=== PATIENT | male | born 1990 | race African-American/Black ===

== ENCOUNTER 2017-11-23 01:50 | Emergency (ER) | payer SELFPAY ==
[~2017-11-23 01:50] MED LIST: AMOX500T PO
[2017-11-23 01:53] VITALS: BP 158/76; PULSE 63; RESP 15; TEMP 97.6; O2SAT 97
[2017-11-23] MEDS ORDERED: DICL75TA PO (02:20)
[2017-11-23] MEDS ORDERED: CYCL10TA PO (02:20)
[2017-11-23] MEDS ORDERED: CYCLOBENZAPRINE HCL 10 MG TAB PO ONE (02:30)
[2017-11-23] MEDS ORDERED: NAPROXEN 500 MG TAB PO ONE (02:30)
--- NOTE | 2017-11-23 02:30 | PD ---
HPI Chief Complaint: Back/ Neck Pain or Injury Time Seen by Provider: 02:13 Travel History International Travel<30 days: No Contact w/Intl Traveler<30days: No Traveled to known affect area: No History of Present Illness HPI 27-year-old black male presents emergency department with complains of right sided neck pain today. He states that he had pain in his left shoulder and left neck over the last 1-2 weeks after starting back doing push-ups. He states that the pain on the left side has nearly resolved. The pain started on the right side today. He does not recall any exacerbating activity other than the push-ups. He denies any direct trauma. No numbness or tingling. Symptoms are moderate. Worse with movement. No alleviating factors. PFSH Past Medical History Medical History: Denies Significant Hx Diminished Hearing: No Immunizations Current: Yes Tetanus Vaccination: > 5 Years Influenza Vaccination: No Past Surgical History Surgical History: No Previous Surgery Social History Alcohol Use: Yes (OCCASIONAL) Tobacco Use: No Substance Use: No Allergies-Medications (Allergen,Severity, Reaction): Coded Allergies: No Known Allergies (Unverified Adverse Reaction, Unknown, 11/23/17) Reported Meds & Prescriptions Reported Meds & Active Scripts Active Flexeril (Cyclobenzaprine HCl) 10 Mg Tab 10 Mg PO TID Diclofenac Sodium DR (Diclofenac Sodium) 75 Mg Tabdr 75 Mg PO BID Review of Systems General / Constitutional: No: Fever Eyes: No: Visual changes HENT: Positive: Neck Stiffness, Neck Pain, No: Headaches Cardiovascular: No: Chest Pain or Discomfort Respiratory: No: Shortness of Breath Gastrointestinal: No: Abdominal Pain Genitourinary: No: Dysuria Musculoskeletal: No: Pain Skin: No Rash Neurologic: No: Weakness Psychiatric: No: Depression Endocrine: No: Polydipsia Hematologic/Lymphatic: No: Easy Bruising Physical Exam Narrative GENERAL: Well-developed, well-nourished in no acute distress. Nontoxic appearing. HEAD: Normocephalic, atraumatic. EYES: Pupils equal round and reactive. Extraocular motions intact. No scleral icterus. No injection or drainage. ENT: TMs clear without erythema. The external auditory canals clear. Nose: clear . Posterior pharynx is pink and moist. No tonsillar edema or exudate. Uvula midline. Airway patent. NECK: Trachea midline. No central bony tenderness. Right paracervical tenderness and mild spasm. Decreased range of motion due to pain. CARDIOVASCULAR: Regular rate and rhythm without murmurs, gallops, or rubs. RESPIRATORY: Clear to auscultation. Breath sounds equal bilaterally. No wheezes , rales, or rhonchi. GASTROINTESTINAL: Abdomen soft, non-tender, nondistended. No hepato-splenomegaly , or palpable masses. No guarding. EXTREMITIES: No clubbing, cyanosis, or edema. No joint tenderness, effusion, or edema noted. BACK: Nontender without deformity or crepitance. No flank tenderness. Data Data Last Documented VS Vital Signs Date Time Temp Pulse Resp B/P (MAP) Pulse Ox O2 Delivery O2 Flow Rate FiO2 11/23/17 01:53 97.6 63 15 158/76 (103) 97 Orders Orders Naproxen (Naprosyn) (11/23/17 02:30) Cyclobenzaprine (Flexeril) (11/23/17 02:30) Ed Discharge Order (11/23/17 02:18) MDM Medical Decision Making Medical Screen Exam Complete: Yes Emergency Medical Condition: Yes Medical Record Reviewed: Yes Differential Diagnosis MDM: High Differential diagnoses: sprain, strain, spasm, HNP, nerve or vascular injury Narrative Course Patient was given Naprosyn 500 mg and Flexeril 10 mg p.o. This is cervical spasm Diagnosis Primary Impression: Cervical paraspinal muscle spasm Patient Instructions: General Instructions Departure Forms: Tests/Procedures, Work Release Special Instructions: No work 3 days. Additional Instructions: Rest. Ice for the next 3 days followed by heat . Flexeril and Voltaren. Follow-up with a primary care doctor in one week. Return to the ER for emergencies. Med/Other Pt SpecificInfo: Prescription(s) given Scripts Cyclobenzaprine (Flexeril) 10 Mg Tab 10 MG PO TID for Muscle Spasm, #30 TAB 0 Refills Prov: Adria Newton MD 11/23/[address] (Diclofenac Sodium DR) 75 Mg Tabdr 75 MG PO BID, #20 TAB 0 Refills Prov: Adria Newton MD 11/23/17 Disposition: 01 DISCHARGE HOME Condition: Stable Jayden Acevedo November 23, 2017 02:30
== END 2017-11-23 02:44 | disposition home or self-care (01) ==
LOC: NEPD 01:50
DX: M62.830 Muscle spasm of back (principal)
CPT/HCPCS: 99283

== ENCOUNTER 2018-04-24 19:18 | Inpatient (IN) ==
[2018-04-24] MEDS ORDERED: Morphine Sulfate Inj 8 MG/ML Vial ONE ×3 (19:22→20:13)
[2018-04-24] MEDS ORDERED: Diphtheria/Tetanus/Pertussis Vaccine Inj 0.5 ML Syringe IM ONE (19:22)
[2018-04-24] MEDS ORDERED: ceFAZolin 2 GM Premix Inj 2 GM/50 ML PIGGYBACK IV.SIG ONE (19:22)
[2018-04-24 19:39] LABS: Baso % (Auto) 0.4 % (0.0-2.0); Eos # (Auto) 0.2 th/mm3 (0.0-0.4); Eos % (Auto) 2.1 % (0.0-4.0); Hematocrit 45.1 % (39.0-51.0); Hemoglobin 14.9 gm/dL (13.0-17.0); Lymph # (Auto) 4.9 th/mm3 (1.0-4.8); Lymph % (Auto) 50.3 % (9.0-44.0); Mean Corpuscular HGB Conc 33.1 % (32.0-36.0); Mean Corpuscular Hemoglobin 31.4 pg (27.0-34.0); Mean Corpuscular Volume 94.9 fL (80.0-100.0); Mean Platelet Volume 9.7 fL (7.0-11.0); Mono # (Auto) 0.7 th/mm3 (0.0-0.9); Mono % (Auto) 7.6 % (0.0-8.0); Neut # (Auto) 3.8 th/mm3 (1.8-7.7); Neut % (Auto) 39.6 % (16.0-70.0); Platelet Count 187 th/mm3 (150-450); Red Blood Count 4.75 mil/mm3 (4.50-5.90); Red Cell Distribution Width 13.5 % (11.6-17.2); White Blood Count 9.7 th/mm3 (4.0-11.0)
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
[2018-04-24] MEDS ORDERED: Morphine Inj 30 MG/30 ML PCA.VIAL PCA PRN (19:58)
[2018-04-24] MEDS ORDERED: Naloxone Inj 0.4 MG/ML Vial IV.PUSH PRN (19:58)
[2018-04-24 20:00] LABS: Activated Partial Thrombo Time 20.2 sec (24.3-30.1); Prothrombin Time 9.8 sec (9.8-11.6)
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
[2018-04-24] MEDS ORDERED: Morphine Inj 4 MG/ML Vial IV.PUSH SCH (22:45)
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
[2018-04-24] MEDS ORDERED: Phenylephrine/NS 1000 MCG/10ML Syringe IV.PUSH ONE (23:41)
[2018-04-24] MEDS ORDERED: Glycopyrrolate Inj 1 MG/5 ML Syringe IV.PUSH ONE (23:41)
[2018-04-24] MEDS ORDERED: Succinylcholine Inj 100 MG/5 ML Syringe IV.PUSH ONE (23:41)
[2018-04-24] MEDS ORDERED: Lidocaine PF 1% Inj 5 ML Syringe OTHER ONE (23:41)
[2018-04-24] MEDS ORDERED: Neostigmine Inj 5 MG/5 ML Syringe IV.PUSH ONE (23:41)
--- NOTE | 2018-04-25 01:27 | P.BOP ---
- Preoperative Diagnosis (1) Open fracture of unspecified bone(s) of foot (except toes) (2) Traumatic amputation of toe(s) (complete) (partial), complicated - Postoperative Diagnosis (1) Open fracture of unspecified bone(s) of foot (except toes) (2) Traumatic amputation of toe(s) (complete) (partial), complicated Date of procedure: 04/25/18 Procedure: 1. irrigation and debridement of open fractures left foot 2. transmetatarsal amputation left foot Extensive soft tissue damage left forefoot with absence of digits 4 and 5, absence of bone to distal 2nd, 3rd, and 4th metatarsals, visible comminuted fracture to 1st metatarsal. Debris within wound bed diffusely. Cut metatarsals 1-5 at proximal 1/3 and cut to clean margins of skin to surrounding wound and excised damaged tissue and bone to distal forefoot at level of transmetatarsal amputation. Irrigation with 12L normal saline plus gentamicin. Closure with 2-0 nylon sutures. Dressing with xeroform, 4x4, abd x 3, cast padding, short posterior splint. No tourniquet utilized. 80mg Gentamicin IV 2g Ancef IV Nonweightbearing left lower extremity Continue IV antibiotics as ordered x 24 hours No further surgery planned at this time. Follow up in clinic in 1 week for dressing change. Anesthesia: GETA, local (24mL 0.5% marcaine plain) Surgeon: Khloe Verdin DPM Training Coordinator: staff Estimated blood loss (mL): 30 Pathology: other (culture left foot) Condition: stable Disposition: PACU
[2018-04-25] MEDS ORDERED: Bupivacaine 0.5% Inj 50 ML MDV Vial ONE (01:30)
[2018-04-25] MEDS ORDERED: fentaNYL Citrate Inj 100 MCG/2 ML Ampul ONE (01:52)
[2018-04-25] MEDS ORDERED: Gentamicin/NS 80 mg Premix 100 ML IV.SIG SCH (02:00)
[2018-04-25] MEDS ORDERED: ceFAZolin 2 GM Premix Inj 2 GM/50 ML PIGGYBACK IV.SIG SCH (02:00)
[2018-04-25] MEDS: Sod Chloride 0.9% Inj 1,000 ML IV.CONT SCH ×4 (02:30→17:14)
--- NOTE | 2018-04-25 03:32 | XR ---
EXAM DATE: 04/25/2018 12:00 AM EDT AGE/SEX: 89 years / Male INDICATIONS: Post op left foot. CLINICAL DATA: This is the patient's subsequent encounter. Patient reports that signs and symptoms h ave been present for 1 day and indicates a pain score of Nonresponsive. MEDICAL/SURGICAL HISTORY: Non-responsive. Non-responsive. COMPARISON: [facility] [place]OT [place] 1V, 04/24/2018. . FINDINGS: Views of left foot are obtained. There has been amputation along the proximal metatarsals. Foot withi n a splint. CONCLUSION: Postoperative changes left foot Electronically signed by: Nicko Pleitez MD 04/25/2018 3:31 AM EDT
[2018-04-25] MEDS ORDERED: Chlorhexidine Gluconate 2% 1 Pack (2 Cloths) TOPICAL SCH (04:00)
[2018-04-25] MEDS ORDERED: Chlorhexidine Gluconate 2% 1 Pack (2 Cloths) TOPICAL PRN (04:00)
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
[2018-04-25 06:03] LABS: Baso % (Auto) 0.1 % (0.0-2.0); Hemoglobin 12.9 gm/dL (13.0-17.0); Lymph # (Auto) 0.4 th/mm3 (1.0-4.8); Mean Corpuscular HGB Conc 33.9 % (32.0-36.0); Mean Corpuscular Hemoglobin 31.5 pg (27.0-34.0); Mean Corpuscular Volume 92.8 fL (80.0-100.0); Mean Platelet Volume 9.7 fL (7.0-11.0); Mono # (Auto) 0.3 th/mm3 (0.0-0.9); Mono % (Auto) 2.6 % (0.0-8.0); Neut # (Auto) 11.8 th/mm3 (1.8-7.7); Neut % (Auto) 94.3 % (16.0-70.0); Platelet Count 149 th/mm3 (150-450); Red Cell Distribution Width 13.7 % (11.6-17.2); White Blood Count 12.6 th/mm3 (4.0-11.0)
[2018-04-25 06:32] LABS: Calcium 8.1 mg/dL (8.5-10.1); Carbon Dioxide 27.8 meq/L (21.0-32.0); Potassium 4.2 meq/L (3.5-5.1)
[2018-04-25] MEDS: Gentamicin/NS 80 mg Premix 100 ML IV.SIG SCH ×2 (08:00→17:09)
[2018-04-25 08:01] LABS: CKMB Percent 0.4 % (0.0-4.0); Creatine Kinase MB 3.2 ng/mL (0.5-3.6)
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
[2018-04-25] MEDS ORDERED: Morphine Sulfate Inj 2 MG/ML Vial IV.PUSH PRN (09:32)
[2018-04-25] MEDS: Docusate Sodium 100 MG Capsule PO SCH ×3 (09:48→20:58)
[2018-04-25] MEDS: ceFAZolin 2 GM Premix Inj 2 GM/50 ML PIGGYBACK IV.SIG SCH ×3 (10:51→23:32)
[2018-04-25] MEDS: Enoxaparin Inj 40 MG/0.4 ML Syringe SQ SCH (11:03)
[2018-04-25] MEDS: Gabapentin 300 MG Capsule PO SCH ×2 (12:25→18:19)
--- NOTE | 2018-04-25 14:59 | P.PNPOD ---
Subjective Interval history: s/p left transmetatarsal amputation and irrigation/debridement left foot open fractures Review of Systems All other systems reviewed negative except as stated in HPI Physical Exam Vital signs: Vital Signs 04/24/18 19:18 04/24/18 19:24 04/24/18 21:00 Temperature Pulse Rate Respiratory Rate Blood Pressure Pulse Oximetry 99 99 100 04/25/18 01:45 04/25/18 02:00 04/25/18 02:15 Temperature 98.3 F Pulse Rate 84 79 79 Respiratory Rate 12 12 14 Blood Pressure 121/59 L 119/56 L 122/58 L Pulse Oximetry 100 100 100 04/25/18 02:30 04/25/18 02:45 04/25/18 02:57 Temperature 98.6 F Pulse Rate 81 75 79 Respiratory Rate 14 14 14 Blood Pressure 114/60 116/61 111/59 L Pulse Oximetry 96 99 99 04/25/18 03:47 04/25/18 04:27 04/25/18 08:00 Temperature 97.5 F L 97.9 F Pulse Rate 70 88 Respiratory Rate 16 16 15 Blood Pressure 116/58 L 138/66 Pulse Oximetry 100 100 04/25/18 12:00 04/25/18 13:34 Temperature 98.6 F Pulse Rate 88 Respiratory Rate 16 Blood Pressure 134/77 Pulse Oximetry 97 95 Intake & Output 04/24/18 04/25/18 04/25/18 18:59 06:59 18:59 Intake Total 1250 / 1250 Balance 1250 / 1250 Weight 95.98 kg Intake: IV 1250 / 1250 NS Inj 1,000 ML @ 100 mls/hr IV 1000 / 1000 .CONT .Q10H [facility] Rx#:[id number] Ofirmev Inj 1,000 mg In 100 ml 100 / 100 @ 400 mls/hr IV.SIG Q6H [facility] Rx# :[id number] Gentamicin/NS 80 mg Premix 100 100 / 100 ML @ 200 mls/hr IV.SIG Q8H [facility] Rx#:[id number] Ancef 2 GM Premix Inj 2 gm In 50 / 50 50 ml @ 100 mls/hr IV.SIG Q8H [facility] Rx#:[id number] Other: Weight On Admission 100.516 kg Narrative: left foot splint and dressing clean, dry, intact Medications and Allergies Active Medications: Active Medications Al Hydroxide/Mg Hydroxide (Milk Of Rupal May) 30 ml PO BID [facility] Last Admin: 04/25/18 09:48 Dose: 30 ml Bacitracin (Baciguent Oint) 1 applicatio TOPICAL BID [facility] Last Admin: 04/25/18 11:09 Dose: Not Given Chlorhexidine Gluconate (Chlorhexidine 2% Cloth) 3 pack TOPICAL DAILY@0400 [facility] Stop: 04/30/18 03:59 Last Admin: 04/25/18 11:06 Dose: Not Given Chlorhexidine Gluconate (Chlorhexidine 2% Cloth) 3 pack TOPICAL DAILY@0400 PRN PRN Reason: Extra cloth needed Stop: 04/30/18 03:59 Docusate Sodium (Colace) 100 mg PO BID [facility] Last Admin: 04/25/18 11:08 Dose: Not Given Enalaprilat (Vasotec Inj) 1.25 mg IV.PUSH Q8H PRN PRN Reason: Blood pressure 180/95 Enoxaparin Sodium (Lovenox Inj) 40 mg SQ DAILY [facility] Last Admin: 04/25/18 11:03 Dose: 40 mg Gabapentin (Neurontin) 300 mg PO TID [facility] Last Admin: 04/25/18 12:25 Dose: 300 mg Sodium Chloride (Ns Inj) 1,000 mls @ 100 mls/hr IV.CONT .Q10H [facility] Last Admin: 04/25/18 11:08 Dose: Not Given Morphine Sulfate (Morphine Inj) 30 mg in 30 mls @ 0 mls/hr [employer] WORKER UNSCH PRN PRN 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: 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 Last Admin: 04/25/18 02:30 Dose: 0 mls/hr Cefazolin Sodium/Dextrose (Ancef 2 Gm Premix Inj) 2 gm in 50 mls @ 100 mls/hr IV.SIG Q8H [facility] Stop: 04/26/18 00:29 Last Infusion: 04/25/18 11:21 Dose: Infused Gentamicin Sulfate/Sodium Chloride (Gentamicin/Ns 80 Mg Premix) 100 mls @ 200 mls/hr IV.SIG Q8H [facility] Stop: 04/26/18 08:59 Last Infusion: 04/25/18 08:30 Dose: Infused Acetaminophen (Ofirmev Inj) 1,000 mg in 100 mls @ 400 mls/hr IV.SIG Q6H [facility] Stop: 04/26/18 04:14 Last Infusion: 04/25/18 11:19 Dose: Infused Miscellaneous Information ([facility]) 1 each OTHER UNSCH PRN PRN Reason: SEE LABEL COMMENTS Stop: 04/26/18 00:59 Morphine Sulfate (Morphine Inj) 2 mg IV.PUSH Q3H PRN PRN Reason: BREAKTHROUGH PAIN Naloxone HCl (Narcan Inj) 0.4 mg IV.PUSH PRN PRN PRN Reason: Resp rate < 10 Ondansetron HCl (Zofran Inj) 4 mg IV.PUSH Q6H PRN PRN Reason: NAUSEA OR VOMITING Oxycodone HCl (Roxicodone) 10 mg PO Q4H PRN PRN Reason: Pain 6-10 Last Admin: 04/25/18 09:46 Dose: 10 mg Oxycodone HCl (Roxicodone) 5 mg PO Q4H PRN PRN Reason: Acute Pain Pantoprazole Sodium (Protonix Inj) 40 mg IV.PUSH Q24H [place] Sodium Chloride (Ns Flush) 2 ml IV.FLUSH UNSCH PRN PRN Reason: FLUSH AFTER USING IV ACCESS Allergies Allergy/AdvReac Type Severity Reaction Status Date / Time No Known Allergies Allergy Verified 04/24/18 20:57 Results - Labs CBC & Chem 7: 04/25/18 05:20 04/25/18 05:20 Laboratory Results - last 24 hr 04/24/18 04/24/18 04/24/18 19:25 19:25 19:25 WBC 9.7 RBC 4.75 Hgb 14.9 POC Hgb (Calc) 15.0 Hct 45.1 POC Hct 44.0 MCV 94.9 MCH 31.4 MCHC 33.1 RDW 13.5 Plt Count 187 MPV 9.7 Neut % (Auto) 39.6 Lymph % (Auto) 50.3 H [place] % (Auto) 7.6 Eos % (Auto) 2.1 Baso % (Auto) 0.4 Neut # (Auto) 3.8 Lymph # (Auto) 4.9 H [place] # (Auto) 0.7 Eos # (Auto) 0.2 Baso # (Auto) 0.0 WBC Differential . Differential Comment Auto diff final PT 9.8 INR 1.0 APTT 20.2 L POC Sodium 145 H Sodium POC Potassium 2.9 L* Potassium POC Chloride 101 L Chloride Carbon Dioxide Anion Gap POC BUN 18 BUN Creatinine POC Creatinine 1.8 H Estimated GFR POC Glucose 98 Random Glucose Calcium Total Creatine Kinase CK-MB (CK-2) CK-MB (CK-2) % Nasal Screen MRSA (PCR) Blood Type Antibody Screen 04/24/18 04/25/18 04/25/18 19:25 03:27 05:20 WBC 12.6 H RBC 4.10 L Hgb 12.9 L D POC Hgb (Calc) Hct 38.0 L POC Hct MCV 92.8 MCH 31.5 MCHC 33.9 RDW 13.7 Plt Count 149 L MPV 9.7 Neut % (Auto) 94.3 H Lymph % (Auto) 3.0 L [place] % (Auto) 2.6 Eos % (Auto) 0.0 Baso % (Auto) 0.1 Neut # (Auto) 11.8 H Lymph # (Auto) 0.4 L [place] # (Auto) 0.3 Eos # (Auto) 0.0 Baso # (Auto) 0.0 WBC Differential . Differential Comment Auto diff final PT INR APTT POC Sodium Sodium POC Potassium Potassium POC Chloride Chloride Carbon Dioxide Anion Gap POC BUN BUN Creatinine POC Creatinine Estimated GFR POC Glucose Random Glucose Calcium Total Creatine Kinase CK-MB (CK-2) CK-MB (CK-2) % Nasal Screen MRSA (PCR) Not detected Blood Type A Positive Antibody Screen Negative 04/25/18 04/25/18 05:20 05:20 WBC RBC Hgb POC Hgb (Calc) Hct POC Hct MCV MCH MCHC RDW Plt Count MPV Neut % (Auto) Lymph % (Auto) [place] % (Auto) Eos % (Auto) Baso % (Auto) Neut # (Auto) Lymph # (Auto) [place] # (Auto) Eos # (Auto) Baso # (Auto) WBC Differential Differential Comment PT INR APTT POC Sodium Sodium 142 POC Potassium Potassium 4.2 POC Chloride Chloride 109 H Carbon Dioxide 27.8 Anion Gap 5 POC BUN BUN 15 Creatinine 1.43 H POC Creatinine Estimated GFR 43 L POC Glucose Random Glucose 108 H Calcium 8.1 L Total Creatine Kinase 896 H Cancelled CK-MB (CK-2) 3.2 CK-MB (CK-2) % 0.4 Nasal Screen MRSA (PCR) Blood Type Antibody Screen - Imaging Impressions Chest X-Ray 04/24/18 19:26 CONCLUSION: No active disease. Pelvis X-Ray 04/24/18 19:26 CONCLUSION: No acute findings on limited AP trauma film. Abdomen/Pelvis CT 04/24/18 19:27 CONCLUSION: 1. No acute findings within the abdomen and pelvis. Probable small 2 cm subcutaneous hematoma in the upper lateral left thigh. Chest CT 04/24/18 19:27 CONCLUSION: 1. Negative for acute traumatic injury within the thorax. Foot X-Ray 04/24/18 19:27 CONCLUSION: Multiple amputations as above with comminuted fractures involving the first metatarsal and proximal second and third toes. No fractures across the second, third and fourth metatarsals. Cervical Spine CT 04/24/18 19:28 CONCLUSION: 1. No acute findings. Face CT 04/24/18 19:28 CONCLUSION: 1. Frontal scalp laceration. No facial bone fracture identified. Head CT 04/24/18 19:28 CONCLUSION: 1. No acute intracranial abnormality. Frontal scalp laceration and soft tissue swelling. No acute bony abnormality . Foot X-Ray 04/25/18 00:00 CONCLUSION: Postoperative changes left foot Assessment and Plan - Plan Discussed he will likely need toe filler for shoe. Discussed he may need future PT vs future procedures in the long-term if posterior muscle groups get too tight and cause abnormal motion about the amputation site, but no further surgery is planned at this time at this admission. Keep dressing clean, dry, intact Ice/elevate Nonweightbearing left lower extremity in splint Ok with discharge when pain controlled after 24 hours IV antibiotics completed. Please discharge on 2 weeks oral antibiotics (clindamycin ok) Follow up 1 week for dressing change
--- NOTE | 2018-04-25 18:13 | P.DCO ---
- Physical Therapy Order: Evaluate and treat, Improve ambulation, Strength and gait training - Home Health Nursing Order: Medical education, Signs/symptoms of disease process, Medication education-adverse effect, Nursing assessment with vital signs - Case Management Consult Yes - Certification I have seen patient Jose Sandy on 04/25/18. My clinical findings support the need for the requested home health care services because: Limited mobility due to disease progression, Patient has SOB, Deconditioned with increased weakness, Limited ability to care for self I certify that my clinical findings support that this patient is homebound because: Post-op weakness, Unsteady gait/balance, Unsafe to leave home unassisted, Need for psychosocial assistance, Unable to use public transportation
[2018-04-25] MEDS: Pantoprazole Inj 40 MG Vial IV.PUSH SCH ×2 (20:58→21:03)
[2018-04-26] MEDS: Gentamicin/NS 80 mg Premix 100 ML IV.SIG SCH (01:16)
[2018-04-26] MEDS: Sod Chloride 0.9% Inj 1,000 ML IV.CONT SCH (02:12)
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
[2018-04-26 08:14] VITALS: BP 115/57; PULSE 84; RESP 16; TEMP 98.7; O2SAT 99
[2018-04-26] MEDS: Gabapentin 300 MG Capsule PO SCH (09:09)
[2018-04-26] MEDS: Docusate Sodium 100 MG Capsule PO SCH (09:09)
[2018-04-26] MEDS: Enoxaparin Inj 40 MG/0.4 ML Syringe SQ SCH (09:28)
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
== END 2018-04-26 11:36 | disposition home health service (06) ==
LOC: NEPI 19:18 → MERGE 20:22 → EDBD 20:22 → NEDA 20:22 → N06 04-25 03:26
PROVIDERS: ADMIT Surgery; ATTEND Surgery
PROC: [UNRECOGNIZED PROCEDURE] (2018-04-24 23:41)